=== PATIENT | male | born 1940 | race Caucasian/White ===

== ENCOUNTER 2016-07-28 12:55 | Outpatient (CLI) | payer OTHER ==
--- NOTE | 2016-07-28 15:34 | DIAGNOSTIC IMAGING REPORT ---
PROCEDURE: MR LUMBAR SPINE W/O CONTRAST INDICATION: CONTUSION OF SACRAL AREA TECHNIQUE: Noncontrast T1, T2, and STIR sagittal images. T1 and T2 axial images. COMPARISON: Lumbar spine MRI 01/31/2010. FINDINGS: Normal alignment without fracture. No suspicious osseous lesion. Moderate spur formation with moderate L4-5 disc space narrowing. Normal conus. Paraspinal soft tissues are normal. L1-2: Normal appearance. L2-3: Minor bilateral foraminal disc bulge and facet arthropathy but no foraminal or spinal stenosis. L3-4: Minor bilateral foraminal disc bulge and facet arthropathy but no foraminal or spinal stenosis. L4-5: Stable large right posterior disc herniation/spur complex with underlying mildly bulging disc. There is posterior displacement of the right L5 and S1 nerve roots. Mild facet arthropathy. Severe right and mild to moderate left foraminal stenosis, unchanged. No spinal stenosis. L5-S1: Normal disc. Moderate facet arthropathy. No foraminal or spinal stenosis. IMPRESSION: 1. 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
== END 2016-07-28 23:00 ==
LOC: MRI SRH 12:55
DX: S30.0XXA Contusion of lower back and pelvis, initial encounter (principal); M48.06 Spinal stenosis, lumbar region